=== PATIENT | male | born 1990 ===

== ENCOUNTER 2018-06-27 18:20 | Observation (INO) | payer SELFPAY ==
[2018-06-27] MEDS ORDERED: Tdap Vaccine 0.5 ml Vial (10-64 yrs) IM ONE ×2 (19:27→19:40)
[2018-06-27] MEDS ORDERED: ceFAZolin 1 gm in NS 1 GM/100 ML BAG IVPB ONE (19:40)
[2018-06-27] MEDS ORDERED: Lidocaine Hydrochloride 10 ML INJ ONE (19:42)
[2018-06-27 20:15] LABS: BASO # 0.2 K/uL (0.0-0.2); BASO % 2.3 % (0.0-2.0); EOS # 0.1 K/uL (0.0-0.7); EOS % 1.1 % (0.0-4.0); HEMOGLOBIN 10.3 g/dL (12.0-18.0); LYMPH # 3.4 K/uL (1.0-4.3); LYMPH % 44.1 % (20.0-40.0); MEAN CELL VOLUME 79.4 fL (80.0-94.0); MEAN CORPUSCULAR HGB CONC 31.5 g/dL (33.0-37.0); MEAN PLATELET VOLUME 8.8 fL (7.2-11.7); MONO # 0.8 K/uL (0.0-0.8); MONO % 9.8 % (0.0-10.0); NEUT # 3.3 K/uL (1.8-7.0); NEUT % 42.7 % (50.0-75.0); NRBC % 0.1 % (0.0-2.0); RBC 4.13 Mil/uL (4.40-5.90); RED CELL DISTRIBUTION WIDTH 17.6 % (11.5-14.5); WHITE BLOOD COUNT 7.8 K/uL (4.8-10.8)
[2018-06-27] MEDS ORDERED: Lidocaine 1% Inj (20ml) INFIL ONE (20:24)
[2018-06-27 20:31] LABS: ALBUMIN 4.7 g/dL (3.5-5.0); ALT/SGPT 40 U/L (21-72); AST/SGOT 93 U/L (17-59); BLOOD UREA NITROGEN 7 mg/dL (9-20); CALCIUM 8.1 mg/dl (8.6-10.4); GFR NON-AFRICAN AMERICAN > 60
[2018-06-27] MEDS ORDERED: Multivitamin (MVI) 10 ML, Thiamine 100 MG, Folic Acid 1 MG in Sodium Chloride 0.9% 1,00... IV ONE (20:36)
--- NOTE | 2018-06-27 20:51 | C.PDOC ---
History Of Present Illness 27 y.o male comes top ed with injury to left 4th finger. pt unable to give more information. pt admits to drinking today. Time Seen by Provider: 06/27/18 19:11 Chief Complaint (Nursing): Abnormal Skin Integrity History Per: Patient History/Exam Limitations: intoxication Current Symptoms Are (Timing): Still Present Location Of Injury: Left: Hand (4th finger) Past Medical History Reviewed: Historical Data, Nursing Documentation, Vital Signs Vital Signs: Last Vital Signs Temp 98.1 F 06/27/18 18:32 Pulse 104 H 06/27/18 18:32 Resp 20 06/27/18 18:32 BP 161/79 H 06/27/18 18:32 Pulse Ox 98 06/27/18 18:32 - Medical History Other PMH: uto Family History: States: Unknown Family Hx - Social History Hx Alcohol Use: Yes Hx Substance Use: No - Immunization History Hx Tetanus Toxoid Vaccination: No Hx Influenza Vaccination: No Hx Pneumococcal Vaccination: No Review Of Systems Review Of Systems: ROS cannot be obtained secondary to pt's inabilty to answer questions. Physical Exam - Physical Exam Appears: Non-toxic, Unkempt, Combative, Agitated Skin: Warm, Dry Head: Atraumatic, Normacephalic Eye(s): bilateral: Other (dilated pupils) Oral Mucosa: Moist Neck: Supple Chest: Symmetrical, No Deformity, No Tenderness Cardiovascular: Rhythm Regular Respiratory: No Decreased Breath Sounds, No Wheezing Gastrointestinal/Abdominal: Bowel Sounds, Soft, No Tenderness Extremity: Other (4th digit with tip of finger missing, approx 1/4 nail remaining, active bleeding, bone showing. ) Pulses: Left Radial: Normal, Right Radial: Normal Neurological/Psych: Other (moves all extremities, slurred speech) Disoriented To: Person, Place Gait: Unable To Assess ED Course And Treatment - Laboratory Results Result Diagrams: 06/27/18 20:02 06/27/18 20:02 Lab Results: Total Bilirubin 0.7 mg/dL (0.2-1.3) 06/27/18 20:02 AST 93 U/L (17-59) H 06/27/18 20:02 ALT 40 U/L (21-72) 06/27/18 20:02 Alkaline Phosphatase 114 U/L (38-126) 06/27/18 20:02 Total Protein 9.2 g/dL (6.3-8.3) H 06/27/18 20:02 Albumin 4.7 g/dL (3.5-5.0) 06/27/18 20:02 Globulin 4.5 gm/dL (2.2-3.9) H 06/27/18 20:02 Albumin/Globulin Ratio 1.0 (1.0-2.1) 06/27/18 20:02 O2 Sat by Pulse Oximetry: 98 Medical Decision Making Medical Decision Making: pt intoxicated appearing and combative, has pulled dressing off finger 4 times, non cooperative with irrigation of finger, keeps flinging left hand with blood spraying all over. restraints ordered. left 4th finger got digital block. 2245 pt much calmer and cooperative now, restraints removed and 1:1 to be cancelled. left finger irrigated well and covered with xeroform. discussed with Dr Johnson earlier, recommended admission for iv antibiotics. discussed with Dr Ledezma, admit to his service. Disposition Discussed With Dr.: Ward Ledezma Doctor Will See Patient In The: Hospital - Disposition Disposition: HOSPITALIZED Disposition Time: 23:04 Condition: STABLE Forms: [facility] (Y[place]i) - Clinical Impression Clinical Impression: Amputation of finger of left hand, Alcohol intoxication
[2018-06-27 22:15] LABS: BARBITURATES, UR NEGATIVE (NEGATIVE); BENZODIAZEPINES, UR NEGATIVE (NEGATIVE); OPIATES, UR NEGATIVE (NEGATIVE); PHENCYCLIDINE, UR NEGATIVE (NEGATIVE)
--- NOTE | 2018-06-27 23:17 | CP.PCM.HP ---
<Nikko Calloway - Last Filed: 06/28/18 07:24> History of Present Illness - History of Present Illness History of Present Illness: PGY1 H&P for Medicine Hospitalist This is a 27 year old male with history of DM2 who presents to the ED intoxicated and complaining of injury to the left fourth finger earlier today. Pt is a poor historian as he is still intoxicated (EtOH as per pt). 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 At that point, he "wasn't drunk." He states that he was working on a ceiling, when he accidentally cut the tip of his left fourth finger, unable to explain what exactly cut his finger. He states that he went home, and then continued to drink to dull the pain. Bleeding did not stop, and the pain did not go away, so he came to the ED. ROS is limited due to intoxication. Denies, fever, chills, chest pain, sob, abdominal pain, n/v/d, headache, head trauma, neck pain, back pain, fall, any other pains. PMH: DM2 (hasn't taken his pill since more than 6 months, and does not take his sugars) PSH: denies Meds: denies Allx: Shrimp in the past, denies current allergy FHx: denies SHx: Homeless, occasional marijuana use, occasional smoking, 4-5 24 ounce beers per day. Denies other illicit drug use or IVDA. Present on Admission - Present on Admission Any Indicators Present on Admission: No Review of Systems - Review of Systems Systems not reviewed;Unavailable: Intoxicated All systems: reviewed and no additional remarkable complaints except (as per HPI) Past Patient History - Past Social History Smoking Status: Never Smoked - PSYCHIATRIC Hx Substance Use: No - SURGICAL HISTORY Hx Surgeries: No - ANESTHESIA Hx Anesthesia: No Hx Anesthesia Reactions: No Meds Allergies/Adverse Reactions: Allergies Allergy/AdvReac Type Severity Reaction Status Date / Time shrimp Allergy ITCHING Verified 06/28/18 01:20 Physical Exam - Constitutional Appears: Non-toxic, Unkempt - Head Exam Head Exam: ATRAUMATIC, NORMAL INSPECTION - Eye Exam Eye Exam: EOMI. absent: Conjunctival injection, Nystagmus Pupil Exam: Mydriatic (reactive to light) - ENT Exam ENT Exam: Mucous Membranes Dry - Neck Exam Neck exam: Positive for: Full Rom, Normal Inspection. Negative for: Tenderness - Respiratory Exam Respiratory Exam: Clear to Auscultation Bilateral, NORMAL BREATHING PATTERN. absent: Accessory Muscle Use, Rales, Rhonchi, Wheezes, Respiratory Distress - Cardiovascular Exam Cardiovascular Exam: Tachycardia, +S1, +S2. absent: Diastolic murmur, Systolic Murmur - GI/Abdominal Exam GI & Abdominal Exam: Distended (in the suprapubic region, nontender. dull to percussion), Normal Bowel Sounds, Soft. absent: Guarding, Rebound, Tenderness - Extremities Exam Extremities exam: Positive for: full ROM, normal capillary refill, normal inspection, pedal pulses present. Negative for: calf tenderness, pedal edema Additional comments: Left 4th digit with tip of finger missing, approx 1/4 nail remaining, active bleeding, bone exposed - Back Exam Back exam: NORMAL INSPECTION. absent: CVA tenderness (L), CVA tenderness (R), paraspinal tenderness, rash noted, vertebral tenderness - Neurological Exam Neurological exam: Alert, CN II-XII Intact (unable to assess CN 3, 4, 6 as pt unable to cooperate due to intoxication) Additional comments: 5/5 strength in upper and lower extremities abnormal finger to nose - Psychiatric Exam Psychiatric exam: Normal Affect, Normal Mood - Skin Skin Exam: Dry, Normal Color, Warm Additional comments: decreased skin turgor noted Results - Vital Signs Recent Vital Signs: Last Vital Signs Temp 98.1 F 06/27/18 18:32 Pulse 110 H 06/27/18 22:07 Resp 18 06/27/18 22:07 BP 129/74 06/27/18 22:07 Pulse Ox 98 06/27/18 23:05 - Labs Result Diagrams: 06/27/18 20:02 06/27/18 20:02 Labs: Laboratory Results - last 24 hr 06/27/18 06/27/18 06/27/18 20:02 20:02 20:38 WBC 7.8 RBC 4.13 L Hgb 10.3 L Hct 32.8 L MCV 79.4 L MCH 25.0 L MCHC 31.5 L RDW 17.6 H Plt Count 143 MPV 8.8 Neut % (Auto) 42.7 L Lymph % (Auto) 44.1 H [place] % (Auto) 9.8 Eos % (Auto) 1.1 Baso % (Auto) 2.3 H Neut # (Auto) 3.3 Lymph # (Auto) 3.4 [place] # (Auto) 0.8 Eos # (Auto) 0.1 Baso # (Auto) 0.2 Sodium 141 Potassium 3.4 L Chloride 100 Carbon Dioxide 24 Anion Gap 20 BUN 7 L Creatinine 0.5 L Est GFR ( Amer) > 60 Est GFR (Non-Af Amer) > 60 Random Glucose 123 H Calcium 8.1 L Phosphorus 5.2 H Magnesium 1.8 Total Bilirubin 0.7 AST 93 H ALT 40 Alkaline Phosphatase 114 Total Protein 9.2 H Albumin 4.7 Globulin 4.5 H Albumin/Globulin Ratio 1.0 Urine Opiates Screen Urine Methadone Screen Ur Barbiturates Screen Ur Phencyclidine Scrn Ur Amphetamines Screen U Benzodiazepines Scrn U Oth Cocaine Metabols U Cannabinoids Screen Alcohol, Quantitative 520 H 06/27/18 21:56 WBC RBC Hgb Hct MCV MCH MCHC RDW Plt Count MPV Neut % (Auto) Lymph % (Auto) [place] % (Auto) Eos % (Auto) Baso % (Auto) Neut # (Auto) Lymph # (Auto) [place] # (Auto) Eos # (Auto) Baso # (Auto) Sodium Potassium Chloride Carbon Dioxide Anion Gap BUN Creatinine Est GFR ( Amer) Est GFR (Non-Af Amer) Random Glucose Calcium Phosphorus Magnesium Total Bilirubin AST ALT Alkaline Phosphatase Total Protein Albumin Globulin Albumin/Globulin Ratio Urine Opiates Screen Negative Urine Methadone Screen Negative Ur Barbiturates Screen Negative Ur Phencyclidine Scrn Negative Ur Amphetamines Screen Negative U Benzodiazepines Scrn Negative U Oth Cocaine Metabols Negative U Cannabinoids Screen Negative Alcohol, Quantitative Assessment & Plan - Assessment and Plan (Free Text) Assessment: This is a 27 year old male with history of DM2 who presents to the ED intoxicated and complaining of injury to the left fourth finger earlier today. Plan: Fingertip amputation Cefazolin and Vancomycin IVPB in the ED; Tdap also received in ED Left hand x-ray shows no avulsion fracture of the digit, some edema or collection in proximal part of finger; f/u official report Rocephin 1g IVPB q24 hours, Vancomycin 1g IVPB q12h Bleeding controlled with xeroform dressing, and bandage EtOH intoxication EtOH is 520 on admission Utox is negative Pt pulled out his IV in the ED; 1:1 observation CIWA protocol Pt is currently receiving banana bag Folate PO, Thiamine PO, Multivitamins PO Librium 20 mg PO Q8H with holding parameters Ativan 1 mg IV q2h prn Seizure precautions Fall precautions Aspiration precautions CXR shows no obvious infiltrate; f/u official report Dehydration, likely due to chronic alcohol abuse LR IVF with KCl 20 meq at 150 mL/hr Total protein and globulin are increased, decreased skin turgor on exam Lower abdominal dullness to percussion; r/o hematoma due to possibility of trauma in etoh intoxication Pt with what looks like old area of ecchymosis F/u Abd/pelv CT without contrast Microcytic anemia H/H is 10.3/32.8; MCV is 79.4; RDW is 17.6; tbili is normal F/u iron, tibc, iron %, FOBT Continue to monitor Borderline hypocalcemia with hyperphosphatemia Corrected calcium is 7.54, Phosphate is 5.2, magnesium is 1.8 Continue to monitor Transaminitis, likely due to chronic alcohol use AST/ALT/ALP is 93/40/114 Continue to monitor DM2 Accuchecks ACHS F/u HgbA1c No indication for GI ppx at this time No indication for chemical VTE ppx at this time; SCDs. May revisit VTE ppx in am if pt continues to be bedbound. HHD/CCD Case discussed with Dr. Brisa Calloway PGY1 <Ward eLdezma P - Last Filed: 06/28/18 08:20> Results - Vital Signs Recent Vital Signs: Last Vital Signs Temp 97.3 F L 06/28/18 00:31 Pulse 108 H 06/28/18 00:31 Resp 20 06/28/18 00:31 BP 126/74 06/28/18 00:31 Pulse Ox 98 06/28/18 00:31 - Labs Result Diagrams: 06/28/18 07:00 06/28/18 07:00 Labs: Laboratory Results - last 24 hr 06/27/18 06/27/18 06/27/18 20:02 20:02 20:38 WBC 7.8 RBC 4.13 L Hgb 10.3 L Hct 32.8 L MCV 79.4 L MCH 25.0 L MCHC 31.5 L RDW 17.6 H Plt Count 143 MPV 8.8 Neut % (Auto) 42.7 L Lymph % (Auto) 44.1 H [place] % (Auto) 9.8 Eos % (Auto) 1.1 Baso % (Auto) 2.3 H Neut # (Auto) 3.3 Lymph # (Auto) 3.4 [place] # (Auto) 0.8 Eos # (Auto) 0.1 Baso # (Auto) 0.2 Sodium 141 Potassium 3.4 L Chloride 100 Carbon Dioxide 24 Anion Gap 20 BUN 7 L Creatinine 0.5 L Est GFR ( Amer) > 60 Est GFR (Non-Af Amer) > 60 POC Glucose (mg/dL) Random Glucose 123 H Calcium 8.1 L Phosphorus 5.2 H Magnesium 1.8 Iron TIBC % Saturation Total Bilirubin 0.7 AST 93 H ALT 40 Alkaline Phosphatase 114 Total Creatine Kinase Total Protein 9.2 H Albumin 4.7 Globulin 4.5 H Albumin/Globulin Ratio 1.0 Urine Opiates Screen Urine Methadone Screen Ur Barbiturates Screen Ur Phencyclidine Scrn Ur Amphetamines Screen U Benzodiazepines Scrn U Oth Cocaine Metabols U Cannabinoids Screen Alcohol, Quantitative 520 H 06/27/18 06/28/18 06/28/18 21:56 07:00 07:00 WBC 6.2 RBC 3.61 L Hgb 9.2 L Hct 28.7 L MCV 79.4 L MCH 25.6 L MCHC 32.2 L RDW 17.6 H Plt Count 122 L D MPV 8.9 Neut % (Auto) 49.5 L Lymph % (Auto) 41.0 H [place] % (Auto) 7.7 Eos % (Auto) 0.7 Baso % (Auto) 1.1 Neut # (Auto) 3.1 Lymph # (Auto) 2.6 [place] # (Auto) 0.5 Eos # (Auto) 0.0 Baso # (Auto) 0.1 Sodium 142 Potassium 3.5 L Chloride 103 Carbon Dioxide 26 Anion Gap 16 BUN 5 L Creatinine 0.5 L Est GFR ( Amer) > 60 Est GFR (Non-Af Amer) > 60 POC Glucose (mg/dL) Random Glucose 107 Calcium 7.8 L Phosphorus 4.9 H Magnesium 1.7 Iron TIBC % Saturation Total Bilirubin 0.7 AST 94 H ALT 41 Alkaline Phosphatase 107 Total Creatine Kinase 542 H Total Protein 8.5 H Albumin 4.3 Globulin 4.2 H Albumin/Globulin Ratio 1.0 Urine Opiates Screen Negative Urine Methadone Screen Negative Ur Barbiturates Screen Negative Ur Phencyclidine Scrn Negative Ur Amphetamines Screen Negative U Benzodiazepines Scrn Negative U Oth Cocaine Metabols Negative U Cannabinoids Screen Negative Alcohol, Quantitative 06/28/18 06/28/18 07:00 07:57 WBC RBC Hgb Hct MCV MCH MCHC RDW Plt Count MPV Neut % (Auto) Lymph % (Auto) [place] % (Auto) Eos % (Auto) Baso % (Auto) Neut # (Auto) Lymph # (Auto) [place] # (Auto) Eos # (Auto) Baso # (Auto) Sodium Potassium Chloride Carbon Dioxide Anion Gap BUN Creatinine Est GFR ( Amer) Est GFR (Non-Af Amer) POC Glucose (mg/dL) 102 Random Glucose Calcium Phosphorus Magnesium Iron 29 L TIBC 495 H % Saturation 6 L Total Bilirubin AST ALT Alkaline Phosphatase Total Creatine Kinase Total Protein Albumin Globulin Albumin/Globulin Ratio Urine Opiates Screen Urine Methadone Screen Ur Barbiturates Screen Ur Phencyclidine Scrn Ur Amphetamines Screen U Benzodiazepines Scrn U Oth Cocaine Metabols U Cannabinoids Screen Alcohol, Quantitative Attending/Attestation - Attestation I have personally seen and examined this patient.: Yes I have fully participated in the care of the patient.: Yes I have reviewed all pertinent clinical information: Yes Notes (Text): 06/28/18 08:19 Assessed patient along with the resident, formulated the plan of care as above, agree with documentation.
[2018-06-28] MEDS: Potassium Chloride 20 MEQ in Lactated Ringer's 1,000 ML IV SCH ×3 (01:00→13:57)
[2018-06-28 07:13] LABS: BASO # 0.1 K/uL (0.0-0.2); BASO % 1.1 % (0.0-2.0); EOS % 0.7 % (0.0-4.0); HEMOGLOBIN 9.2 g/dL (12.0-18.0); LYMPH # 2.6 K/uL (1.0-4.3); MEAN CELL VOLUME 79.4 fL (80.0-94.0); MEAN CORPUSCULAR HEMOGLOBIN 25.6 pg (27.0-31.0); MEAN CORPUSCULAR HGB CONC 32.2 g/dL (33.0-37.0); MEAN PLATELET VOLUME 8.9 fL (7.2-11.7); MONO # 0.5 K/uL (0.0-0.8); MONO % 7.7 % (0.0-10.0); NEUT # 3.1 K/uL (1.8-7.0); NEUT % 49.5 % (50.0-75.0); NRBC % 0.1 % (0.0-2.0); RBC 3.61 Mil/uL (4.40-5.90); RED CELL DISTRIBUTION WIDTH 17.6 % (11.5-14.5); WHITE BLOOD COUNT 6.2 K/uL (4.8-10.8)
[2018-06-28 07:26] LABS: IRON 29 ug/dL (49-181)
--- NOTE | 2018-06-28 07:28 | CP.PCM.PN ---
<Amy Botello - Last Filed: 06/28/18 13:45> Subjective - Date & Time of Evaluation Date of Evaluation: 06/28/18 Time of Evaluation: 07:28 - Subjective Subjective: PGY-1 Amy Botello D.O. Medicine progress note for Dr. Ontiveros's service: Patient was seen and examined this morning. He is awake, alert, and oriented. He says that his hand pain is not too bad. 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 He went home and drank a 500 mL bottle of vodka to help the pain but went to the ED when he could no longer tolerate it. Patient states that this has never happened before. He says that he has been drinking daily for the past 17 years. He says he drinks by himself due to stress. He denies ever having been to rehab, detox, or AA. Patient denies ever having withdrawal seizures. he presently denies JACKMAN, N/V, chest pain, SOB, abdominal pain, D/C. Objective - Vital Signs/Intake and Output Vital Signs (last 24 hours): Temp Pulse Resp BP Pulse Ox 97.3 F L 108 H 20 126/74 98 06/28/18 00:31 06/28/18 00:31 06/28/18 00:31 06/28/18 00:31 06/28/18 00:31 - Medications Medications: Current Medications Chlordiazepoxide (Librium) 20 mg PO Q8 [facility] Last Admin: 06/28/18 06:01 Dose: 20 mg Folic Acid (Folic Acid) 1 mg PO DAILY [facility] Potassium Chloride 20 meq/ (Lactated Ringer's) 1,010 mls @ 150 mls/hr IV .Q6H44M [facility] Last Admin: 06/28/18 01:00 Dose: 150 mls/hr Ceftriaxone Sodium 1 gm/ (Sodium Chloride) 100 mls @ 100 mls/hr IVPB DAILY [facility]; Protocol Vancomycin/Sodium Chloride (Vancomycin 1 Gm/Ns 200 Ml) 1 gm in 200 mls @ 133 mls/hr IVPB Q12H [facility]; Protocol Stop: 07/03/18 11:01 Influenza Virus Vaccine (Flucelvax Quad [id number] Syr) 60 mcg IM .ONCE ONE Stop: 06/30/18 10:01 Lorazepam (Ativan) 1 mg IVP Q2H PRN PRN Reason: alcohol withdrawal Last Admin: 06/28/18 06:03 Dose: 1 mg Multivitamins (Hexavitamin) 1 tab PO DAILY [facility] Pneumococcal Polyvalent Vaccine (Pneumovax 23 Vaccine) 0.5 ml IM .ONCE ONE Stop: 06/30/18 10:01 Thiamine HCl (Vitamin B1 Tab) 100 mg PO DAILY [facility] - Labs Labs: 06/27/18 20:02 06/27/18 20:02 - Constitutional Appears: Non-toxic, No Acute Distress - Head Exam Head Exam: ATRAUMATIC, NORMAL INSPECTION - Eye Exam Eye Exam: EOMI, Normal appearance, PERRL - ENT Exam ENT Exam: Mucous Membranes Moist - Neck Exam Neck Exam: Normal Inspection - Respiratory Exam Respiratory Exam: Clear to Ausculation Bilateral, NORMAL BREATHING PATTERN. absent: Respiratory Distress - Cardiovascular Exam Cardiovascular Exam: RRR, +S1, +S2 - GI/Abdominal Exam GI & Abdominal Exam: Soft. absent: Tenderness - Extremities Exam Additional comments: L hand 4th digit- active bleeding, tip of finger missing, some of nail r emaining, no bone exposure noted No loss of sensation or ROM to finger or hand - Neurological Exam Neurological Exam: Alert, Awake, CN II-XII Intact, Oriented x3 Neuro motor strength exam: Left Upper Extremity: 5, Right Upper Extremity: 5, Left Lower Extremity: 5, Right Lower Extremity: 5 - Psychiatric Exam Psychiatric exam: Normal Affect, Normal Mood - Skin Skin Exam: Dry, Normal Color, Warm Assessment and Plan - Assessment and Plan (Free Text) Assessment: Patient is a 27 yo male with history of alcohol use disorder and T2DM (not on meds) who presented with a traumatic finger amputation of his L 4th digit after an accident at work. Additionally, patient was drinking heavily and presented intoxicated. Patient initially agitated and required 1:1. Patient was calm the following morning and will continue to be monitored with CIWA protocol and treated with Librium taper. Hand surgeon, Dr. Johnson, was consulted, and patietn will have surgery tomorrow 06/29. Plan: Traumatic finger injury/amputation - Tdap received in ED - XR: no fracture or foreign body - Rocephin 1 g IV daily- started 06/28 - Vancomycin 1 g IV Q12H- started 06/28 - Morphine 2 mg IV Q4H PRN - Wound care- xeroform, telfa, santos bandage - Hand surgery consulted (Alex)- plan for surgery tomorrow 06/29 10 AM Alcohol use disorder - Patient reports drinking heavily for 17 years - Initially presented as acutely intoxicated, requiring 1:1 - Received banana bag in ED - Discontinue 1:1 - Aspiration, Seizure, Fall precautions - BAL 520 on admission - UDS negative - CIWA (1,1) - Librium 20 mg PO Q8H- taper - Ativan 1 mg IV Q2H PRN - MV, thiamine, folate - KCl 20 mEq in LR @ 100 mL/hr Transaminitis- likely 2/2 chronic alcohol use (AST:ALT >2) - CT A/P: hepatosplenomegaly - AST 94, ALT 41 - Monitor LFTs Microcytic anemia - No baseline Hgb available - Iron low (29), TIBC elev (495), % sat low (6), ferritin wnl 13.3 - Folate wnl (11.2), Vit B12 wnl (701) - Monitor CBC - FOBT pending Vitamin D deficiency - 25-OH vit D total <12.8 - Vitamin D 50,000 IU Q7D (Sun) - Calcium-Vit D 250 mg-125 u daily H/o Type 2 diabetes mellitus - Patient reports being diagnosed 2 years go but is not on any medications, dose not follow regularly with a doctor - A1c 6 - Accuchecks ACHS - Hypoglycemic protocol - ISS Ppx: VTE: SCDs GI: not indicated Code status: full code Dispo: Hand surgery scheduled for 06/29. Follow-up surgeon's recs. Monitor for alcohol withdrawal. Case discussed with attending, Dr. Ontiveros. <Raudel Ontiveros - Last Filed: 06/28/18 16:20> Objective - Vital Signs/Intake and Output Vital Signs (last 24 hours): Temp Pulse Resp BP Pulse Ox 98.2 F 106 H 20 122/69 95 06/28/18 08:27 06/28/18 08:27 06/28/18 08:27 06/28/18 08:27 06/28/18 08:27 Intake and Output: 06/28/18 06/28/18 06:59 18:59 Intake Total 2160 Balance 2160 - Medications Medications: Current Medications Calcium/Vitamin D (Oscal-D 250 Mg-125 Units Tab) 1 tab PO DAILY [facility] Last Admin: 06/28/18 12:38 Dose: 1 tab Chlordiazepoxide (Librium) 20 mg PO Q8 [facility] Last Admin: 06/28/18 13:55 Dose: 20 mg Ergocalciferol (Drisdol 50,000 Intl Units Cap) 1 cap PO Q7D [facility] Last Admin: 06/28/18 11:10 Dose: 1 cap Folic Acid (Folic Acid) 1 mg PO DAILY [facility] Last Admin: 06/28/18 09:36 Dose: 1 mg Ceftriaxone Sodium 1 gm/ (Sodium Chloride) 100 mls @ 100 mls/hr IVPB DAILY [facility]; Protocol Last Admin: 06/28/18 09:36 Dose: 100 mls/hr Vancomycin/Sodium Chloride (Vancomycin 1 Gm/Ns 200 Ml) 1 gm in 200 mls @ 133 mls/hr IVPB Q12H [facility]; Protocol Stop: 07/03/18 11:01 Last Admin: 06/28/18 11:10 Dose: 133 mls/hr Potassium Chloride 20 meq/ (Lactated Ringer's) 1,010 mls @ 100 mls/hr IV .Q10H6M [facility] Last Admin: 06/28/18 13:57 Dose: Not Given Influenza Virus Vaccine (Flucelvax Quad [id number] Syr) 60 mcg IM .ONCE ONE Stop: 06/30/18 10:01 Lorazepam (Ativan) 1 mg IVP Q2H PRN PRN Reason: alcohol withdrawal Last Admin: 06/28/18 06:03 Dose: 1 mg Morphine Sulfate (Morphine) 2 mg IVP Q4 PRN PRN Reason: Pain, severe (8-10) Last Admin: 06/28/18 12:42 Dose: 2 mg Multivitamins (Hexavitamin) 1 tab PO DAILY [facility] Last Admin: 06/28/18 09:36 Dose: 1 tab Pneumococcal Polyvalent Vaccine (Pneumovax 23 Vaccine) 0.5 ml IM .ONCE ONE Stop: 06/30/18 10:01 Thiamine HCl (Vitamin B1 Tab) 100 mg PO DAILY [facility] Last Admin: 06/28/18 09:36 Dose: 100 mg - Labs Labs: 06/28/18 07:00 06/28/18 07:00 PT 14.4 SECONDS (9.7-12.2) H 06/28/18 11:20 INR 1.3 06/28/18 11:20 APTT 40 SECONDS (21-34) H 06/28/18 11:20 Attending/Attestation - Attestation I have personally seen and examined this patient.: Yes I have fully participated in the care of the patient.: Yes I have reviewed all pertinent clinical information, including history, physical exam and plan: Yes Notes (Text): Medical attending: Patient was seen and examined by me. Reviewed the above note by the resident and agree with the note The patient was not in any acute distress at this time. The patient was earlier acute intoxicated and was pulling out IV lines and was placed on 1 to 1 earlier in the morning. He claims he is not tremulous and does not feel like he can go into withdrawl however we will have to monitor him carefully The patient is on Librium as well as Ativan PRN For the time being will be on IV abx emperically Currently afebrile, pain is controlled with medications Raudel Ontiveros
[2018-06-28 07:35] LABS: % IRON SATURATION 6 (20-55); TOTAL IRON BINDING CAPACITY 495 ug/dL (250-450)
[2018-06-28 07:39] LABS: ALBUMIN 4.3 g/dL (3.5-5.0); ALT/SGPT 41 U/L (21-72); AST/SGOT 94 U/L (17-59); BLOOD UREA NITROGEN 5 mg/dL (9-20); CALCIUM 7.8 mg/dl (8.6-10.4); GFR NON-AFRICAN AMERICAN > 60
--- NOTE | 2018-06-28 08:27 | RAD ---
PROCEDURE: Left Hand Radiographs. HISTORY: 4th digit amputation COMPARISON: None available. FINDINGS: BONES: No acute displaced fracture. JOINTS: No dislocation. SOFT TISSUES: Soft tissue amputation distal 4th phalanx. No evidence of radiopaque foreign body. OTHER FINDINGS: None. IMPRESSION: Soft tissue amputation, distal 4th phalanx. No evidence of radiopaque foreign body. No acute displaced fracture.
--- NOTE | 2018-06-28 08:41 | RAD ---
HISTORY: r/o aspiration COMPARISON: None available. TECHNIQUE: Chest, one view. FINDINGS: Examination limited by hypoinflation, patient obliquity, and patient's overlying hands/arms. Left-sided PICC extends to the expected location of the SVC. LUNGS: Minimal linear atelectasis, right midlung zone and lingula. No focal consolidation. Please note that chest x-ray has limited sensitivity for the detection of pulmonary masses. PLEURA: No significant pleural effusion identified. No definite pneumothorax . CARDIOVASCULAR: Heart size appears within normal limits. No significant atherosclerotic calcification present. OSSEOUS STRUCTURES: No acute osseous abnormality identified. VISUALIZED UPPER ABDOMEN: Unremarkable. OTHER FINDINGS: None. IMPRESSION: Left-sided PICC extends to the expected location of the SVC. No focal consolidation.
--- NOTE | 2018-06-28 09:31 | CP.PCM.CON ---
History of Present Illness - History of Present Illness History of Present Illness: Hand consultation Dr. Johnson 27M complains of left ring finger pain after getting finger caught in metal door yesterday while at work. patient admits to ETOH use, TADEO >500 on admission. Patient is now lucid. Denies pain in other extremities. RHD. Review of Systems - Review of Systems All systems: reviewed and no additional remarkable complaints except - Musculoskeletal Musculoskeletal: As Per HPI - Integumentary Integumentary: As Per HPI - Neurological Additional comments: denies numbness/tingling - Hematologic/Lymphatic Hematologic: absent: As Per HPI, Easy Bleeding, Easy Bruising, Lymphadenopathy, Other Past Patient History - Past Medical History & Family History Past Medical History?: Yes Past Family History: Reviewed and not pertinent - Past Social History Smoking Status: Never Smoked Alcohol: > 2 Drinks/Day - PSYCHIATRIC Hx Substance Use: No - SURGICAL HISTORY Hx Surgeries: No - ANESTHESIA Hx Anesthesia: No Hx Anesthesia Reactions: No Meds Allergies/Adverse Reactions: Allergies Allergy/AdvReac Type Severity Reaction Status Date / Time shrimp Allergy ITCHING Verified 06/28/18 01:20 - Medications Medications: Current Medications Chlordiazepoxide (Librium) 20 mg PO Q8 [facility] Last Admin: 06/28/18 06:01 Dose: 20 mg Folic Acid (Folic Acid) 1 mg PO DAILY [facility] Potassium Chloride 20 meq/ (Lactated Ringer's) 1,010 mls @ 150 mls/hr IV .[id number] [facility] Last Admin: 06/28/18 07:59 Dose: Not Given Ceftriaxone Sodium 1 gm/ (Sodium Chloride) 100 mls @ 100 mls/hr IVPB DAILY [facility]; Protocol Vancomycin/Sodium Chloride (Vancomycin 1 Gm/Ns 200 Ml) 1 gm in 200 mls @ 133 mls/hr IVPB Q12H [facility]; Protocol Stop: 07/03/18 11:01 Influenza Virus Vaccine (Flucelvax Quad [id number] Syr) 60 mcg IM .ONCE ONE Stop: 06/30/18 10:01 Lorazepam (Ativan) 1 mg IVP Q2H PRN PRN Reason: alcohol withdrawal Last Admin: 06/28/18 06:03 Dose: 1 mg Multivitamins (Hexavitamin) 1 tab PO DAILY [facility] Pneumococcal Polyvalent Vaccine (Pneumovax 23 Vaccine) 0.5 ml IM .ONCE ONE Stop: 06/30/18 10:01 Thiamine HCl (Vitamin B1 Tab) 100 mg PO DAILY [facility] Physical Exam - Constitutional Appears: Well, In Acute Distress (during dressing change) - Head Exam Head Exam: ATRAUMATIC - Neck Exam Neck exam: Positive for: Full Rom, Normal Inspection - Respiratory Exam Respiratory Exam: NORMAL BREATHING PATTERN - Cardiovascular Exam Additional comments: ++radial pulse LUE - Expanded Upper Extremities Exam Left Elbow exam: full ROM, normal inspection Forearm Wrist exam: full ROM, normal inspection Neuro motor exam: finger 2-5 abduction intact, thumb abduction, thumb IP flexion intact, thumb opposition intact, wrist extension intact Neurosensory exam: median nerve intact, radial nerve intact, ulnar nerve intact Vascular exam: radial pulse - Neurological Exam Neurological exam: Alert, Oriented x3 - Psychiatric Exam Psychiatric exam: Normal Affect, Normal Mood - Skin Skin Exam: Warm Additional comments: clean straight partial amputation of left ring finger just distal to nail fold. distal phalanx visible. noted moderate blood on dressing, but minimal active oozing at this time. Results - Vital Signs Recent Vital Signs: Last Vital Signs Temp 98.2 F 06/28/18 08:27 Pulse 106 H 06/28/18 08:27 Resp 20 06/28/18 08:27 BP 122/69 06/28/18 08:27 Pulse Ox 95 06/28/18 08:27 - Labs Result Diagrams: 06/28/18 07:00 06/28/18 07:00 Labs: Laboratory Results - last 24 hr 06/27/18 06/27/18 06/27/18 20:02 20:02 20:38 WBC 7.8 RBC 4.13 L Hgb 10.3 L Hct 32.8 L MCV 79.4 L MCH 25.0 L MCHC 31.5 L RDW 17.6 H Plt Count 143 MPV 8.8 Neut % (Auto) 42.7 L Lymph % (Auto) 44.1 H [place] % (Auto) 9.8 Eos % (Auto) 1.1 Baso % (Auto) 2.3 H Neut # (Auto) 3.3 Lymph # (Auto) 3.4 [place] # (Auto) 0.8 Eos # (Auto) 0.1 Baso # (Auto) 0.2 Sodium 141 Potassium 3.4 L Chloride 100 Carbon Dioxide 24 Anion Gap 20 BUN 7 L Creatinine 0.5 L Est GFR ( Amer) > 60 Est GFR (Non-Af Amer) > 60 POC Glucose (mg/dL) Random Glucose 123 H Hemoglobin A1c Calcium 8.1 L Phosphorus 5.2 H Magnesium 1.8 Iron TIBC % Saturation Total Bilirubin 0.7 AST 93 H ALT 40 Alkaline Phosphatase 114 Total Creatine Kinase Total Protein 9.2 H Albumin 4.7 Globulin 4.5 H Albumin/Globulin Ratio 1.0 Urine Opiates Screen Urine Methadone Screen Ur Barbiturates Screen Ur Phencyclidine Scrn Ur Amphetamines Screen U Benzodiazepines Scrn U Oth Cocaine Metabols U Cannabinoids Screen Alcohol, Quantitative 520 H 06/27/18 06/28/18 06/28/18 21:56 07:00 07:00 WBC 6.2 RBC 3.61 L Hgb 9.2 L Hct 28.7 L MCV 79.4 L MCH 25.6 L MCHC 32.2 L RDW 17.6 H Plt Count 122 L D MPV 8.9 Neut % (Auto) 49.5 L Lymph % (Auto) 41.0 H [place] % (Auto) 7.7 Eos % (Auto) 0.7 Baso % (Auto) 1.1 Neut # (Auto) 3.1 Lymph # (Auto) 2.6 [place] # (Auto) 0.5 Eos # (Auto) 0.0 Baso # (Auto) 0.1 Sodium 142 Potassium 3.5 L Chloride 103 Carbon Dioxide 26 Anion Gap 16 BUN 5 L Creatinine 0.5 L Est GFR ( Amer) > 60 Est GFR (Non-Af Amer) > 60 POC Glucose (mg/dL) Random Glucose 107 Hemoglobin A1c Calcium 7.8 L Phosphorus 4.9 H Magnesium 1.7 Iron TIBC % Saturation Total Bilirubin 0.7 AST 94 H ALT 41 Alkaline Phosphatase 107 Total Creatine Kinase 542 H Total Protein 8.5 H Albumin 4.3 Globulin 4.2 H Albumin/Globulin Ratio 1.0 Urine Opiates Screen Negative Urine Methadone Screen Negative Ur Barbiturates Screen Negative Ur Phencyclidine Scrn Negative Ur Amphetamines Screen Negative U Benzodiazepines Scrn Negative U Oth Cocaine Metabols Negative U Cannabinoids Screen Negative Alcohol, Quantitative 06/28/18 06/28/18 06/28/18 07:00 07:00 07:57 WBC RBC Hgb Hct MCV MCH MCHC RDW Plt Count MPV Neut % (Auto) Lymph % (Auto) [place] % (Auto) Eos % (Auto) Baso % (Auto) Neut # (Auto) Lymph # (Auto) [place] # (Auto) Eos # (Auto) Baso # (Auto) Sodium Potassium Chloride Carbon Dioxide Anion Gap BUN Creatinine Est GFR ( Amer) Est GFR (Non-Af Amer) POC Glucose (mg/dL) 102 Random Glucose Hemoglobin A1c 6.0 Calcium Phosphorus Magnesium Iron 29 L TIBC 495 H % Saturation 6 L Total Bilirubin AST ALT Alkaline Phosphatase Total Creatine Kinase Total Protein Albumin Globulin Albumin/Globulin Ratio Urine Opiates Screen Urine Methadone Screen Ur Barbiturates Screen Ur Phencyclidine Scrn Ur Amphetamines Screen U Benzodiazepines Scrn U Oth Cocaine Metabols U Cannabinoids Screen Alcohol, Quantitative - Impressions Impression: Patient Name / ID : IZZY RICE / [id number] Exam Date : 06/27/2018 20:04:28 ( Approved ) Study Comment : Sex / Age : M / [id number] Creator : La Nena Marks MD Dictator : La Nena Marks MD 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 HISTORY: 4th digit amputation COMPARISON: None available. FINDINGS: BONES: No acute displaced fracture. JOINTS: No dislocation. SOFT TISSUES: Soft tissue amputation distal 4th phalanx. No evidence of radiopaque foreign body. OTHER FINDINGS: None. IMPRESSION: Soft tissue amputation, distal 4th phalanx. No evidence of radiopaque foreign body. No acute displaced fracture. Assessment & Plan (1) Traumatic amputation of fingertip Assessment and Plan: for revision amputation/closure in am 06/29 10am dressing changed. Wound copiously irrigated, xeroform, telfa, gauze, kerlex/santos applied, hand elevated pain medication medical optimization/clearance pending check PT/PTT check vitamin D level d/w Dr. Johnson, agrees with above vitamin D level very low, vit D ordered NPO p MN labs in am noted anemia, ?acute on chronic medical w/u pending Status: Acute (2) Alcohol intoxication Assessment and Plan: cessation advised CIWA Status: Acute (3) Vitamin D deficiency Assessment and Plan: supp Status: Acute
[2018-06-28] MEDS: Multiple Vitamins Tab PO SCH (09:36)
[2018-06-28] MEDS ORDERED: Potassium Chloride 20 mEq ER Tab PO SCH (10:00)
[2018-06-28 10:29] LABS: FERRITIN 13.3 ng/mL
[2018-06-28] MEDS ORDERED: Ergocalciferol 50,000 Intl Units Cap PO SCH (10:45)
[2018-06-28 10:59] LABS: FOLATE 11.2 ng/mL
[2018-06-28] MEDS: Vancomycin 1 gm/NS 200 ml 1 GM/200 ML BAG IVPB SCH ×2 (11:10→22:09)
--- NOTE | 2018-06-28 11:22 | CT ---
Date of service: 06/28/2018 PROCEDURE: CT Abdomen and Pelvis.. HISTORY: Rule out hematoma COMPARISON: None. TECHNIQUE: Contiguous axial images of the abdomen and pelvis performed without oral or intravenous contrast material. Additional 2D sagittal and coronal reformats generated. Radiation dose: Total exam DLP = 980.44 mGy-cm. This CT exam was performed using one or more of the following dose reduction techniques: Automated exposure control, adjustment of the mA and/or kV according to patient size, and/or use of iterative reconstruction technique. FINDINGS: LOWER THORAX: There is localized patchy opacities seen in the posteromedial aspect left lung base; findings may represent developing lower lobe infiltrate. Minimal passive/dependent type atelectasis also present both posterior sulci. Heart size upper limits of normal. No significant pericardial effusion. There is a small hiatal hernia with slight wall thickening of the distal esophagus likely due to protrusion gastric mucosa. LIVER: Liver is enlarged measuring nearly 23 cm in CC dimension. No obvious hepatic mass collection or calcification. Mild fatty hepatic infiltration. No obvious hepatic masses or collections seen on this noncontrast exam.. GALLBLADDER AND BILE DUCTS: Gallbladder physiologically distended. No evidence of intraluminal gallbladder calculi. PANCREAS: Unremarkable. No mass. No ductal dilatation. SPLEEN: Unremarkable. No splenomegaly. ADRENALS: No adrenal lesions.. KIDNEYS AND URETERS: Kidneys demonstrate relatively symmetric size.. No evidence of nephrolithiasis or hydronephrosis.. No obvious renal masses or collections. BLADDER: Urinary bladder is markedly distended. Rule out urinary retention. No evidence of intraluminal urinary bladder calculi. REPRODUCTIVE: Unremarkable as visualized. APPENDIX: Normal-appearing appendix BOWEL: Evaluation of the bowel is somewhat limited due to the lack of oral contrast material.. No obstruction. No gross mural thickening however note made of a few scattered colonic diverticula seen along the descending and proximal sigmoid the right while the the a apparently she however it is more hypodense or white portion from abdominal block down this way edge; she did turn into the [address] of wall 1st at severe prior with outer later white that carriage top she the must of in a bad not down graphite 1 ileus stool however colon. PERITONEUM: Unremarkable. No fluid collection. No free air. LYMPH NODES: Unremarkable. No enlarged lymph nodes. VASCULATURE: Unremarkable. No aortic aneurysm. No aortic atherosclerotic calcification or mural plaque present. BONES: No fracture or destructive lesion. OTHER FINDINGS: None. IMPRESSION: No acute intraperitoneal hemorrhages. Hepatomegaly with fatty infiltration. Borderline splenomegaly Markedly distended urinary bladder; rule out urinary retention.
[2018-06-28 11:32] LABS: INR 1.3; PROTHROMBIN TIME 14.4 SECONDS (9.7-12.2)
[2018-06-28] MEDS: Calcium-Vit D 250 mg-125 Units Tab UD PO SCH (12:38)
[2018-06-28 20:09] LABS: MEAN CELL VOLUME 78.9 fL (80.0-94.0); MEAN CORPUSCULAR HEMOGLOBIN 25.2 pg (27.0-31.0); MEAN CORPUSCULAR HGB CONC 31.9 g/dL (33.0-37.0); MEAN PLATELET VOLUME 8.9 fL (7.2-11.7); RBC 3.59 Mil/uL (4.40-5.90); RED CELL DISTRIBUTION WIDTH 17.6 % (11.5-14.5); WHITE BLOOD COUNT 8.3 K/uL (4.8-10.8)
[2018-06-29] MEDS: Potassium Chloride 20 MEQ in Lactated Ringer's 1,000 ML IV SCH ×3 (05:30→10:18)
[2018-06-29 07:20] LABS: INR 1.3; PROTHROMBIN TIME 14.6 SECONDS (9.7-12.2)
[2018-06-29 07:21] LABS: BASO # 0.1 K/uL (0.0-0.2); BASO % 1.2 % (0.0-2.0); EOS % 0.5 % (0.0-4.0); HEMOGLOBIN 9.4 g/dL (12.0-18.0); LYMPH # 1.6 K/uL (1.0-4.3); LYMPH % 21.6 % (20.0-40.0); MEAN CELL VOLUME 79.2 fL (80.0-94.0); MEAN CORPUSCULAR HEMOGLOBIN 25.6 pg (27.0-31.0); MEAN CORPUSCULAR HGB CONC 32.3 g/dL (33.0-37.0); MONO % 13.4 % (0.0-10.0); NEUT # 4.8 K/uL (1.8-7.0); NEUT % 63.3 % (50.0-75.0); NRBC % 0.2 % (0.0-2.0); RBC 3.68 Mil/uL (4.40-5.90); WHITE BLOOD COUNT 7.6 K/uL (4.8-10.8)
[2018-06-29 09:53] LABS: ALBUMIN 4.5 g/dL (3.5-5.0); ALT/SGPT 42 U/L (21-72); AST/SGOT 83 U/L (17-59); BLOOD UREA NITROGEN 9 mg/dL (9-20); GFR NON-AFRICAN AMERICAN > 60
[2018-06-29] MEDS: Multiple Vitamins Tab PO SCH ×2 (10:17→13:55)
[2018-06-29] MEDS: Calcium-Vit D 250 mg-125 Units Tab UD PO SCH (10:18)
[2018-06-29] MEDS ORDERED: Propofol 10 mg/ml Inj (20 ML) ONE (10:45)
[2018-06-29] MEDS ORDERED: Midazolam 2 MG/2 ML VIAL ONE (10:46)
[2018-06-29] MEDS ORDERED: cefTRIAXone 1 gm 1 GM/100 ML BAG IVPB ONE (10:58)
[2018-06-29] MEDS ORDERED: Lidocaine Hydrochloride 10 ML INJ ONE (11:22)
[2018-06-29] MEDS ORDERED: HYDROmorphone 0.5 mg/0.5 ml ISec IVP PRN (12:04)
[2018-06-29] MEDS: Vancomycin 1 gm/NS 200 ml 1 GM/200 ML BAG IVPB SCH ×2 (12:27→13:49)
--- NOTE | 2018-06-29 16:16 | CP.PCM.DIS ---
<Reanna Guillen - Last Filed: 06/29/18 19:20> Provider - Provider Date of Admission: 06/27/18 23:03 Attending physician: Ward Ledezma MD Consults: 06/28/18 09:58 Physician Consult Routine Comment: Consulting Provider: Brett Johnson Consulting Physician: Brett Johnson Reason for Consult: finger injury Time Spent in preparation of Discharge (in minutes): 40 Diagnosis - Discharge Diagnosis (1) Alcohol intoxication Status: Resolved (2) Amputation of finger of left hand Status: Acute (3) Traumatic amputation of fingertip Status: Acute Hospital Course - Lab Results Lab Results: Most Recent Lab Values WBC 7.6 K/uL (4.8-10.8) 06/29/18 07:02 RBC 3.68 Mil/uL (4.40-5.90) L 06/29/18 07:02 Hgb 9.4 g/dL (12.0-18.0) L 06/29/18 07:02 Hct 29.1 % (35.0-51.0) L 06/29/18 07:02 MCV 79.2 fL (80.0-94.0) L 06/29/18 07:02 MCH 25.6 pg (27.0-31.0) L 06/29/18 07:02 MCHC 32.3 g/dL (33.0-37.0) L 06/29/18 07:02 RDW 18.0 % (11.5-14.5) H 06/29/18 07:02 Plt Count 118 K/uL (130-400) L 06/29/18 07:02 MPV 9.0 fL (7.2-11.7) 06/29/18 07:02 Neut % (Auto) 63.3 % (50.0-75.0) 06/29/18 07:02 Lymph % (Auto) 21.6 % (20.0-40.0) 06/29/18 07:02 [place] % (Auto) 13.4 % (0.0-10.0) H 06/29/18 07:02 Eos % (Auto) 0.5 % (0.0-4.0) 06/29/18 07:02 Baso % (Auto) 1.2 % (0.0-2.0) 06/29/18 07:02 Neut # (Auto) 4.8 K/uL (1.8-7.0) 06/29/18 07:02 Lymph # (Auto) 1.6 K/uL (1.0-4.3) 06/29/18 07:02 [place] # (Auto) 1.0 K/uL (0.0-0.8) H 06/29/18 07:02 Eos # (Auto) 0.0 K/uL (0.0-0.7) 06/29/18 07:02 Baso # (Auto) 0.1 K/uL (0.0-0.2) 06/29/18 07:02 Differential Comment 06/28/18 07:00 PT 14.6 SECONDS (9.7-12.2) H 06/29/18 07:02 INR 1.3 06/29/18 07:02 APTT 35 SECONDS (21-34) H D 06/29/18 07:02 Sodium 134 mmol/L (132-148) 06/29/18 07:02 Potassium 3.5 mmol/L (3.6-5.2) L 06/29/18 07:02 Chloride 98 mmol/L (98-107) 06/29/18 07:02 Carbon Dioxide 23 mmol/L (22-30) 06/29/18 07:02 Anion Gap 16 (10-20) 06/29/18 07:02 BUN 9 mg/dL (9-20) 06/29/18 07:02 Creatinine 0.4 mg/dL (0.8-1.5) L 06/29/18 07:02 Est GFR ( Amer) > 60 06/29/18 07:02 Est GFR (Non-Af Amer) > 60 06/29/18 07:02 POC Glucose (mg/dL) 113 mg/dL (65-110) H 06/29/18 12:34 Random Glucose 103 mg/dL (75-110) 06/29/18 07:02 Hemoglobin A1c 6.0 % (4.2-6.5) 06/28/18 07:00 Calcium 9.0 mg/dl (8.6-10.4) 06/29/18 07:02 Phosphorus 4.5 mg/dL (2.5-4.5) 06/29/18 07:02 Magnesium 1.6 mg/dL (1.6-2.3) 06/29/18 07:02 Iron 29 ug/dL (49-181) L 06/28/18 07:00 TIBC 495 ug/dL (250-450) H 06/28/18 07:00 % Saturation 6 (20-55) L 06/28/18 07:00 Ferritin 13.3 ng/mL 06/28/18 07:00 Total Bilirubin 1.7 mg/dL (0.2-1.3) H 06/29/18 07:02 AST 83 U/L (17-59) H 06/29/18 07:02 ALT 42 U/L (21-72) 06/29/18 07:02 Alkaline Phosphatase 123 U/L (38-126) 06/29/18 07:02 Total Creatine Kinase 542 U/L (55-170) H 06/28/18 07:00 Total Protein 8.9 g/dL (6.3-8.3) H 06/29/18 07:02 Albumin 4.5 g/dL (3.5-5.0) 06/29/18 07:02 Globulin 4.4 gm/dL (2.2-3.9) H 06/29/18 07:02 Albumin/Globulin Ratio 1.0 (1.0-2.1) 06/29/18 07:02 Vitamin B12 701 pg/mL (239-931) 06/28/18 07:00 25-OH Vitamin D Total < 12.8 NG/ML (30.0-100.0) L 06/28/18 09:49 Folate 11.2 ng/mL 06/28/18 07:00 Urine Opiates Screen Negative (NEGATIVE) 06/27/18 21:56 Urine Methadone Screen Negative (NEGATIVE) 06/27/18 21:56 Ur Barbiturates Screen Negative (NEGATIVE) 06/27/18 21:56 Ur Phencyclidine Scrn Negative (NEGATIVE) 06/27/18 21:56 Ur Amphetamines Screen Negative (NEGATIVE) 06/27/18 21:56 U Benzodiazepines Scrn Negative (NEGATIVE) 06/27/18 21:56 U Oth Cocaine Metabols Negative (NEGATIVE) 06/27/18 21:56 U Cannabinoids Screen Negative (NEGATIVE) 06/27/18 21:56 Alcohol, Quantitative 520 mg/dl (0-10) H 06/27/18 20:02 Blood Type A POSITIVE 06/28/18 11:20 Antibody Screen Negative 06/28/18 11:20 - Hospital Course Hospital Course: "This is a 27 year old male with history of DM2 who presents to the ED intoxicated and complaining of injury to the left fourth finger earlier today. Pt is a poor historian as he is still intoxicated (EtOH as per pt). 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 At that point, he "wasn't drunk." He states that he was working on a ceiling, when he accidentally cut the tip of his left fourth finger, unable to explain what exactly cut his finger. He states that he went home, and then continued to drink to dull the pain. Bleeding did not stop, and the pain did not go away, so he came to the ED. ROS is limited due to intoxication. Denies, fever, chills, chest pain, sob, abdominal pain, n/v/d, headache, head trauma, neck pain, back pain, fall, any other pains." Patient admitted for traumatic fingertip amputation. Hand xray showed soft tissue amputation, distal 4th phalanx. No evidence of radiopaque foreign body. no acute displaced fracture. Patient put on Rocephin and Vanco and Dr. Johnson consulted for surgery. Revision and local flap on left 4th finger done on 06/29/18. Patient presented acutely intoxicated. Patient received banana bag in the ED, put on Librium, Ativan, MV, Thiamine, Folate. Patient found to have low Vitamin D and given 50,000 u followed by Calcium and vitamin D. Patient found to have transaminitis likely secondary to chronic alcohol use. CT of the abdomen/pelvis showed hepatosplenomegaly. Upon discharge patient is feeling well. Pain is well tolerated and patient has no complaints. This is a summary of the patient's hospital course, please see chart for full details. Discharge Exam - Head Exam Head Exam: ATRAUMATIC, NORMAL INSPECTION - Eye Exam Eye Exam: EOMI, Normal appearance - ENT Exam ENT Exam: Mucous Membranes Moist - Respiratory Exam Respiratory Exam: Clear to PA & Lateral, NORMAL BREATHING PATTERN - Cardiovascular Exam Cardiovascular Exam: REGULAR RHYTHM, RRR, +S1, +S2 - GI/Abdominal Exam GI & Abdominal Exam: Normal Bowel Sounds, Soft. absent: Tenderness - Extremities Exam Additional comments: left hang covered in c/d/i dressing - Neurological Exam Neurological exam: Alert, Oriented x3 - Psychiatric Exam Psychiatric exam: Normal Affect, Normal Mood - Skin Skin Exam: Normal Color, Warm Discharge Plan - Discharge Medications Prescriptions: Cephalexin [Keflex] 500 mg PO TID #21 capsule RX: Naproxen 250 mg PO BID PRN #14 tablet PRN Reason: Pain, Moderate (4-7) - Follow Up Plan Condition: STABLE Disposition: HOME/ ROUTINE Instructions: Alcohol Use - When Is Drinking a Problem?, Alcohol Withdrawal (DC), Alcohol Abuse and Alcoholism (DC), Alcohol Poisoning (DC), Amputation of the Finger or Fingertip (DC), Alcohol Intoxication (DC) Additional Instructions: Patient stable for discharge as per Dr. Ontiveros and Dr. Rodrigues. Patient needs to make an appointment with Dr. Johnson for 07/06/18. Patient to keep dressing of left hand clean, dry, intact. Patient to not remove dressing. Patient given prescriptions for Naproxen 250mg by mouth twice a day for 7 days as needed for pain. Keflex 500mg by mouth 3 times per day for 7 days. Patient may also alternate with Tylenol 650mg every 8 hours which he can buy over the counter. Patient to take Vitamin D 5,000 u daily which he can buy over the counter. Patient to return to ER if he has a lot of bleeding through dressing or fevers. Patient explained instructions who understands and agrees. Referrals: [facility] [Outside] Brett Johnson MD [Staff Provider] - <Raudel Ontiveros H - Last Filed: 06/30/18 07:22> Provider - Provider Date of Admission: 06/27/18 23:03 Attending physician: Ward Ledezma MD Consults: 06/28/18 09:58 Physician Consult Routine Comment: Consulting Provider: Brett Johnson Consulting Physician: Brett Johnson Reason for Consult: finger injury Hospital Course - Lab Results Lab Results: Most Recent Lab Values WBC 7.6 K/uL (4.8-10.8) 06/29/18 07:02 RBC 3.68 Mil/uL (4.40-5.90) L 06/29/18 07:02 Hgb 9.4 g/dL (12.0-18.0) L 06/29/18 07:02 Hct 29.1 % (35.0-51.0) L 06/29/18 07:02 MCV 79.2 fL (80.0-94.0) L 06/29/18 07:02 MCH 25.6 pg (27.0-31.0) L 06/29/18 07:02 MCHC 32.3 g/dL (33.0-37.0) L 06/29/18 07:02 RDW 18.0 % (11.5-14.5) H 06/29/18 07:02 Plt Count 118 K/uL (130-400) L 06/29/18 07:02 MPV 9.0 fL (7.2-11.7) 06/29/18 07:02 Neut % (Auto) 63.3 % (50.0-75.0) 06/29/18 07:02 Lymph % (Auto) 21.6 % (20.0-40.0) 06/29/18 07:02 [place] % (Auto) 13.4 % (0.0-10.0) H 06/29/18 07:02 Eos % (Auto) 0.5 % (0.0-4.0) 06/29/18 07:02 Baso % (Auto) 1.2 % (0.0-2.0) 06/29/18 07:02 Neut # (Auto) 4.8 K/uL (1.8-7.0) 06/29/18 07:02 Lymph # (Auto) 1.6 K/uL (1.0-4.3) 06/29/18 07:02 [place] # (Auto) 1.0 K/uL (0.0-0.8) H 06/29/18 07:02 Eos # (Auto) 0.0 K/uL (0.0-0.7) 06/29/18 07:02 Baso # (Auto) 0.1 K/uL (0.0-0.2) 06/29/18 07:02 Differential Comment 06/28/18 07:00 PT 14.6 SECONDS (9.7-12.2) H 06/29/18 07:02 INR 1.3 06/29/18 07:02 APTT 35 SECONDS (21-34) H D 06/29/18 07:02 Sodium 134 mmol/L (132-148) 06/29/18 07:02 Potassium 3.5 mmol/L (3.6-5.2) L 06/29/18 07:02 Chloride 98 mmol/L (98-107) 06/29/18 07:02 Carbon Dioxide 23 mmol/L (22-30) 06/29/18 07:02 Anion Gap 16 (10-20) 06/29/18 07:02 BUN 9 mg/dL (9-20) 06/29/18 07:02 Creatinine 0.4 mg/dL (0.8-1.5) L 06/29/18 07:02 Est GFR ( Amer) > 60 06/29/18 07:02 Est GFR (Non-Af Amer) > 60 06/29/18 07:02 POC Glucose (mg/dL) 116 mg/dL (65-110) H 06/29/18 16:50 Random Glucose 103 mg/dL (75-110) 06/29/18 07:02 Hemoglobin A1c 6.0 % (4.2-6.5) 06/28/18 07:00 Calcium 9.0 mg/dl (8.6-10.4) 06/29/18 07:02 Phosphorus 4.5 mg/dL (2.5-4.5) 06/29/18 07:02 Magnesium 1.6 mg/dL (1.6-2.3) 06/29/18 07:02 Iron 29 ug/dL (49-181) L 06/28/18 07:00 TIBC 495 ug/dL (250-450) H 06/28/18 07:00 % Saturation 6 (20-55) L 06/28/18 07:00 Ferritin 13.3 ng/mL 06/28/18 07:00 Total Bilirubin 1.7 mg/dL (0.2-1.3) H 06/29/18 07:02 AST 83 U/L (17-59) H 06/29/18 07:02 ALT 42 U/L (21-72) 06/29/18 07:02 Alkaline Phosphatase 123 U/L (38-126) 06/29/18 07:02 Total Creatine Kinase 542 U/L (55-170) H 06/28/18 07:00 Total Protein 8.9 g/dL (6.3-8.3) H 06/29/18 07:02 Albumin 4.5 g/dL (3.5-5.0) 06/29/18 07:02 Globulin 4.4 gm/dL (2.2-3.9) H 06/29/18 07:02 Albumin/Globulin Ratio 1.0 (1.0-2.1) 06/29/18 07:02 Vitamin B12 701 pg/mL (239-931) 06/28/18 07:00 25-OH Vitamin D Total < 12.8 NG/ML (30.0-100.0) L 06/28/18 09:49 Folate 11.2 ng/mL 06/28/18 07:00 Urine Opiates Screen Negative (NEGATIVE) 06/27/18 21:56 Urine Methadone Screen Negative (NEGATIVE) 06/27/18 21:56 Ur Barbiturates Screen Negative (NEGATIVE) 06/27/18 21:56 Ur Phencyclidine Scrn Negative (NEGATIVE) 06/27/18 21:56 Ur Amphetamines Screen Negative (NEGATIVE) 06/27/18 21:56 U Benzodiazepines Scrn Negative (NEGATIVE) 06/27/18 21:56 U Oth Cocaine Metabols Negative (NEGATIVE) 06/27/18 21:56 U Cannabinoids Screen Negative (NEGATIVE) 06/27/18 21:56 Alcohol, Quantitative 520 mg/dl (0-10) H 06/27/18 20:02 Blood Type A POSITIVE 06/28/18 11:20 Antibody Screen Negative 06/28/18 11:20 Attending/Attestation - Attestation I have personally seen and examined this patient.: Yes I have fully participated in the care of the patient.: Yes I have reviewed all pertinent clinical information, including history, physical exam and plan: Yes
[2018-06-29 16:30] VITALS: BP 157/83; PULSE 77; RESP 20; TEMP 98.2; O2SAT 96
--- NOTE | 2018-06-29 19:35 | PCM.SURG1 ---
Surgeon's Initial Post Op Note - Surgeon's Notes Surgeon: Dr. Johnson Licensed Mental Health Professional: Dr. Bernard Downing. DPM/PGY1 Type of Anesthesia: General LMA Anesthesia Administered By: Dr. Carvalho Pre-Operative Diagnosis: Left 4th finger partial amputation. Operative Findings: See dictation Post-Operative Diagnosis: Left 4th finger partial amputation. Operation Performed: 1-Revision of the left 4th finger partial amputation of the tip. 2-Primary closure of the left 4th finger using V/Y flap. Specimen/Specimens Removed: None. Estimated Blood Loss: EBL {In ML}: 5 Blood Products Given: N/A Drains Used: No Drains Date of Surgery/Procedure: 06/29/18 Time of Surgery/Procedure: 10:20
[2018-06-30] MEDS ORDERED: Pneumococcal 23-Valent Vaccine IM ONE (10:00)
[2018-06-30] MEDS ORDERED: Influenza Vaccine 60 mcg/0.5 mL SYR (4YR UP) IM ONE (10:00)
--- NOTE | 2018-07-01 00:13 | OP ---
PROCEDURE DATE: 06/29/2018 SURGEON: Brett Johnson MD PREOPERATIVE DIAGNOSIS: Left fourth digit traumatic amputation. POSTOPERATIVE DIAGNOSIS: Left fourth digit traumatic amputation. PROCEDURE: Left fourth digit revision amputation at the leve of distal phalanx with V-Y local flap advancement closure, [id number]. ANESTHESIA: General. SPECIMENS: None. COMPLICATIONS: None. DISPOSITION: Stable to recovery room. INDICATIONS: A 27-year-old male with alcohol abuse who presented to [facility] with loss of tip of his finger. The patient did not recall the timing of the injury, just saying his finger caught in the door. He was admitted and underwent IV antibiotics. On exam, bone exposed. The patient was indicated for the above procedure. DESCRIPTION OF PROCEDURE: The patient was brought to the operating room and placed supine on the operating room table. After regional and general anesthesia was given and prophylactic antibiotics, a well-padded non-sterile tourniquet was placed in the patient's left upper extremity. The entire extremity was then prepped and draped in a standard surgical fashion. A time-out was performed. The arm was elevated and exsanguinated. The tourniquet was inflated to 250 mmHg. The fourth digit was then inspected. There was a transverse laceration at the tip of the finger. The arm was exposed. Rongeur was taken to shorten the distal phalanx to the level of the deep soft tissue. The soft tissue was then curetted, rongeured, and debrided. All the nonviable tissues were extinguished. Local neurectomies of bilateral digital nerves were performed. The 90% of the nail was gone with 10% which was also left intact. Then, work was begun on advancing flap closure volarly. V-Y flap was outlined. An incision was made over the volar bulb of the finger . It was then advanced about 2 cm distally to help cover the distal wound defect. While holding it in the position, multiple 4-0 Monocryl sutures were used to close the flap. After the closure, the tourniquet was deflated. The flap had good capillary refills. Dressing was then applied with Xeroform, 4x4, Uziel, and 4-inch plaster. The patient tolerated the procedure well. He was returned to recovery room in excellent condition. Brett Johnson MD [facility] # [id number]
== END 2018-06-29 20:00 | disposition home or self-care (01) ==
LOC: C.ER 18:20 → C.3T 23:03
PROVIDERS: ADMIT Internal Medicine; ATTEND Internal Medicine
DX: S68.625A Partial traumatic transphalangeal amputation of left ring finger, initial encounter (principal); F10.129 Alcohol abuse with intoxication, unspecified; E11.9 Type 2 diabetes mellitus without complications; E55.9 Vitamin D deficiency, unspecified; Z79.899 Other long term (current) drug therapy; Z91.013 Allergy to seafood; W23.0XXA Caught, crushed, jammed, or pinched between moving objects, initial encounter
CPT/HCPCS: 26952; 36415; 71045; 73130; 74176; 80053; 82306; 82550; 82607; 82728; 82746; 82948; 83036; 83540; 83550; 83735; 84100; 85025; 85027; 85610; 85730; 86850; 86900; 90471; 90715; 96365; 96366; 96367; 96375; 96376; 99285; G0378; G0480; J0690; J0696; J1170; J2001; J2060; J2250; J2270; J2405; J2704; J2765; J3010; J3370; J3411; J7030; J7050; J7120